=== PATIENT | male | born 1925 | race Caucasian/White ===

== ENCOUNTER 2016-10-18 01:08 | Inpatient (IN) | payer MEDICARE, BC ==
[2016-10-18] VITALS (24 sets, daily range): BP systolic 73–165; BP diastolic 37–140; PULSE 120–153; RESP 13–39; TEMP 100.3–102.8; O2SAT 68–96; Ht 167.6 cm; Wt 86.7 kg
[~2016-10-18] VITALS: Ht 167.6 cm; Wt 86.7 kg
[~2016-10-18 01:08] MED LIST: ACET-2321 PO; CITA20TA9 PO; DIGO125T88 PO; DOCU-175 PO; DONE10TA PO; FURO20TA4 PO; FURO40TA5 PO; LEVO50TA11 PO; LORA0.5T86 PO; METO50TA5 PO; POTA10CA37 PO; QUET25TA PO; WARF4TAB6 PO
[2016-10-18] MEDS ORDERED: ACETAMINOPHEN 500 MG TABLET PO ONE (01:15)
[2016-10-18] MEDS ORDERED: NORMAL SALINE 1,000 ML IV ONE ×2 (01:15→02:15)
[2016-10-18] MEDS ORDERED: CEFTRIAXONE I.V. (ER USE ONLY) 1 G in NORMAL SALINE 100 ML IV ONE (01:15)
--- NOTE | 2016-10-18 01:15 | NUR ---
ASSESSMENT PT NOTED TO HAVE SPO2=88% ON ROOM AIR WITH GOOD PLETH WAVEFORM. OXYGEN APPLIED AT 2L/MIN BY NASAL CANNULA. SPO2 NOTED TO IMPROVE TO 94%. WILL CONTINUE TO MONITOR.
--- OUTSIDE RECORDS SUMMARY | 2016-10-18 01:16 | XMS REPORT | Referral Summary ---
Author Author [facility] Organization [facility] Address Unknown Phone Unavailable Care Team Providers Care Printing Shop Supervisor Name Role Phone Sam Jordan Primary Care Physician [phone] Encounter VC Date(s): 06/24/16 - 06/24/16 [facility] [address] [place] [address] ELAINE Portillo [id number] Discharge Diagnosis: H/O coronary artery bypass surgery Discharge Diagnosis: Cognitive decline Discharge Diagnosis: Atrial fibrillation Discharge Diagnosis: Depression Discharge Diagnosis: Coronary heart disease Discharge Diagnosis: Edema Discharge Disposition: -Home or Self Care Attending Physician: Sukhdev Velasquez MD Admitting Physician: Sukhdev Velasquez MD Referring Physician: Cesar Jordan MD Vital Signs Most recent to 1 oldest [Reference Range]: Peripheral Pulse 80 bpm Rate [60-100 bpm] (06/24/16 10:28 AM) Blood Pressure 106/62 mmHg [90-140/60-90 mmHg] (06/24/16 10:28 AM) Problem List Condition Effective Dates Status Health Status Informant Bladder Active problem(Confirmed)1 Atrial fibrillation Active (disorder)(Confirmed ) Coronary Active arteriosclerosis (disorder)(Confirmed ) Hx of anterior and Active fossa navicularis urethral stricture(Confirmed) Anticoagulant Active long-term use(Confirmed) Dyslipidemia(Confirm Active ed) Prostate 08/2007 Active cancer(Confirmed)2 Obesity(Confirmed) Active patient Venous Active insufficiency(Confir med) Dementia(Confirmed) Active Prostatism(Confirmed Active )3 Pure Active hypercholesterolemia (disorder)(Confirmed ) Tobacco Active patient user(Confirmed) 1Hx of slow urinary [id number], & gross bladder trabeculation 2Trt with radiation 3Hx of elevated PSA, prostatic nodule, & BPH w/prostatism Allergies, Adverse Reactions, Alerts Substance Reaction Severity Status heparin1 Active 1Causes severe aggitation Medications ARIPiprazole 2 mg oral tablet 4 mg 2 tabs, Oral, Daily, # 16 tabs, 2 Refill(s), eRx: [facility] #[id number] , TAKE ONE-HALF TABLET (1MG) BY MOUTH DAILY Start Date: 06/17/16 Status: Ordered citalopram 20 mg oral tablet 20 mg 1 tabs, Oral, Daily, 0 Refill(s) Start Date: 05/07/16 Status: Ordered digoxin 125 mcg (0.125 mg) oral tablet mcg tabs, Oral, Daily, 0 Refill(s) Start Date: 06/24/16 Status: Ordered docusate sodium 0 Refill(s) Start Date: 06/24/16 Status: Ordered donepezil 10 mg oral tablet See Instructions, TAKE 1 TABLET BY MOUTH EVERY DAY, # 30 tabs, 2 Refill(s), eRx : [facility] [employer] [id number], TAKE 1 TABLET BY MOUTH EVERY DAY Start Date: 04/08/16 Status: Ordered furosemide 40 mg oral tablet 40 mg 1 tabs, Oral, Daily, # 30 tabs, 0 Refill(s), Pharmacy: [facility] # [id number], 1 tabs Oral Daily Start Date: 06/17/16 Status: Ordered lovastatin 20 mg oral tablet See Instructions, TAKE 1 TABLET BY MOUTH EVERY DAY, # 90 tabs, eRx: [facility] [employer] [id number], TAKE 1 TABLET BY MOUTH EVERY DAY Start Date: 02/21/16 Status: Ordered MELATONIN 5 MG TABLET See Instructions, TAKE TWO TABLETS (10MG) BY MOUTH EVERY EVENING TO PROMOTE SLEEP, # 62 tabs, eRx: [facility] #[id number], TAKE TWO TABLETS (10MG) BY MOUTH EVERY EVENING TO PROMOTE SLEEP Start Date: 05/20/16 Status: Ordered MELATONIN 5 MG TABLET See Instructions, TAKE TWO TABLETS (10MG) BY MOUTH EVERY EVENING TO PROMOTE SLEEP, # 62 tabs, 2 Refill(s), eRx: [facility] #[id number], TAKE TWO TABLETS ( 10MG) BY MOUTH EVERY EVENING TO PROMOTE SLEEP Start Date: 06/17/16 Status: Ordered Metoprolol Tartrate 50 mg oral tablet See Instructions, TAKE 1 TABLET BY MOUTH TWICE DAILY, # 180 tabs, 1 Refill(s), eRx: [facility] [employer] [id number], TAKE 1 TABLET BY MOUTH TWICE DAILY Start Date: 04/27/16 Status: Ordered multivitamin Daily, 0 Refill(s) Start Date: 03/02/14 Status: Ordered omega-3 polyunsaturated fatty acids 500 mg oral capsule 500 mg 1 caps, Oral, BID, 0 Refill(s) Start Date: 05/07/16 Status: Ordered potassium chloride 10 mEq oral tablet, extended release 10 mEq 1 tabs, Oral, Daily, # 30 tabs, 0 Refill(s), other reason (Rx) Start Date: 06/02/16 Status: Ordered vitamin E 400 intl units oral capsule 1 caps, Oral, Daily, # 100 caps, 0 Refill(s) Start Date: 03/02/14 Status: Ordered warfarin 4 mg oral tablet See Instructions, TAKE 1& 1/2 (6MG) TABLETS BY MOUTH DAILY, # 200 tabs, 2 Refill (s), Pharmacy: [facility], TAKE 1& 1/2 TABLETS BY MOUTH ALTERNATING WITH 2 TABLETS EVERY OTHER DAY Start Date: 02/28/16 Status: Ordered Results Hematology Most recent to 1 oldest [Reference Range]: WBC [4.8-10.8 6.1 10*3/uL 10*3/uL] (06/24/16 11:40 AM) RBC [4.60-6.20] 3.23 *LOW* (06/24/16 11:40 AM) Hgb [14.0-18.0 10.5 gm/dL gm/dL] *LOW* (06/24/16 11:40 AM) Hct [42.0-52.0 %] 31.5 % *LOW* (06/24/16 11:40 AM) MCV [82.0-99.0 fL] 97.5 fL (06/24/16 11:40 AM) MCH [27.0-32.0 pg] 32.5 pg *HI* (06/24/16 11:40 AM) MCHC [32.0-36.0 33.3 gm/dL gm/dL] (06/24/16 11:40 AM) RDW [11.5-14.5 %] 13.7 % (06/24/16 11:40 AM) Platelet [150-400] - 1 (06/24/16 11:40 AM) MPV [8.8-14.8 fL] 11.7 fL (11/23/16 11:40 AM) Immature 0.2 % Granulocytes (06/24/16 11:40 AM) [0.0-1.0 %] Neutrophils [51-75 73 % %] (06/24/16 11:40 AM) Lymphocytes [20-46 16 % %] *LOW* (06/24/16 11:40 AM) Monocytes [4-11 %] 9 % (06/24/16 11:40 AM) Eosinophils [0-4 %] 3 % (06/24/16 11:40 AM) Basophils [0-2 %] 0 % (06/24/16 11:40 AM) Neutro Absolute 4.42 10*3 [1.90-7.00 10*3] (06/24/16 11:40 AM) Lymph Absolute 0.94 10*3 [0.80-3.30 10*3] (06/24/16 11:40 AM) Mccone Absolute 0.54 10*3 [0.30-1.00 10*3] (06/24/16 11:40 AM) Eos Absolute 0.15 10*3 [0.00-0.50 10*3] (06/24/16 11:40 AM) Baso Absolute 0.01 10*3 [0.00-0.20 10*3] (06/24/16 11:40 AM) Differential Scanned Slide (06/24/16 11:40 AM) 1Result Comment: Unable to accurately determine platelet count due to platelet clumping. Suggest recheck by collection in Sodium Citrate tube if clinically indicated. Chemistry Most recent to 1 oldest [Reference Range]: Sodium Lvl [135-144 143 mEq/L mEq/L] (06/24/16 11:40 AM) Potassium Lvl 4.5 mEq/L [3.5-5.2 mEq/L] (06/24/16 11:40 AM) Chloride [99-111 109 mEq/L mEq/L] (06/24/16 11:40 AM) CO2 [23-31 mEq/L] 25 mEq/L (06/24/16 11:40 AM) AGAP [3-20] 9 (06/24/16 11:40 AM) BUN [8-26 mg/dL] 29 mg/dL *HI* (06/24/16 11:40 AM) Glucose Lvl [70-99 84 mg/dL mg/dL] (06/24/16 11:40 AM) Creatinine Lvl 1.26 mg/dL [0.72-1.25 mg/dL] *HI* (06/24/16 11:40 AM) eGFR [>60 mL/min] 54 mL/min 1 *ABN* (06/24/16 11:40 AM) Calcium Lvl 8.7 mg/dL [8.9-10.5 mg/dL] *LOW* (06/24/16 11:40 AM) BNP [0-99 pg/mL] 263 pg/mL *HI* (06/24/16 11:40 AM) T4 Free [0.7-1.5 0.9 ng/dL ng/dL] (06/24/16 11:40 AM) TSH with Reflex Free 10.20 T4 [0.35-4.94] *HI* (06/24/16 11:40 AM) 1Result Comment: Multiply eGFR results by 1.21 for race. Immunizations Vaccine Date Refusal Reason influenza virus vaccine, inactivated 06/20/15 influenza virus vaccine, inactivated 06/05/14 influenza virus vaccine, live 05/12/13 influenza virus vaccine, live 05/05/11 pneumococcal 13-valent conjugate vaccine 03/06/15 pneumococcal 23-polyvalent vaccine 04/14/07 Procedures Procedure Date Related Diagnosis Body Site Cystoscopy/Lazer Vaporization1 08/24/07 Colonoscope 07/15/00 Cardiac Bypass1979 1cystoscopy, transrectal needle prost.bx.& urethral dilatation 21 vessel Social History Social History Type Response Smoking Status Former smoker; Type: Cigarettes; Stopped at age: 52 Assessment and Plan No data available for this section
--- OUTSIDE RECORDS SUMMARY | 2016-10-18 01:16 | XMS REPORT | Continuity of Care Document ---
Author Author [facility] Organization [facility] Address Unknown Phone Unavailable Allergies Active Description Code Type Severity Reaction Onset Reported/Identified Relationship to Patient Clinical Status Yes No Known Medication Allergies NKMA N/A N/A 03/05/2014 Yes heparin NKMA N/A N/A 06/24/2016 Medications Problems Procedures Results Test Result Range Protime (INR) - 12/18/15 09:58 INR 1.9 NA 0.8-1.2 Prothrombin Time Venous seconds Comprehensive Metabolic Panel (CMP) - 12/18/15 09:58 Albumin 4.3 g/dL 3.4-4.8 Alkaline Phosphatase 61 U/L 40-150 ALT (SGPT) 17 U/L 0-55 Anion Gap 6 NA 3-20 AST (SGOT) 22 U/L 5-34 Bilirubin Total 1.0 mg/dL 0.2-1.2 BUN 21 mg/dL 8-26 Calcium 9.2 mg/dL 8.9-10.5 Chloride 106 mEq/L 99-111 CO2 28 mEq/L 23-31 Creatinine 1.16 mg/dL 0.72-1.25 Globulin 2.2 g/dL 1.8-4.0 Glucose 90 mg/dL 70-99 Potassium 5.4 mEq/L 3.5-5.2 Protein 6.5 g/dL 6.2-8.1 Sodium 140 mEq/L 135-144 eGFR - 12/18/15 09:58 eGFR 59 mL/min >60 Basic Metabolic Panel (BMP) - 06/24/16 11:40 Anion Gap 9 NA 3-20 BUN 29 mg/dL 8-26 Calcium 8.7 mg/dL 8.9-10.5 Chloride 109 mEq/L 99-111 CO2 25 mEq/L 23-31 Creatinine 1.26 mg/dL 0.72-1.25 Glucose 84 mg/dL 70-99 Potassium 4.5 mEq/L 3.5-5.2 Sodium 143 mEq/L 135-144 eGFR - 06/24/16 11:40 eGFR 54 mL/min >60 B-Type Natriuretic Peptide - 11/23/16 11:40 B-Type Natriuretic Peptide 263 pg/mL 0- 99 TSH with Reflex Free T4 - 06/24/16 11:40 TSH with Reflex Free T4 10.20 uIU/mL 0.35 -4.94 Free T4 - 06/24/16 11:40 Free T4 0.9 ng/dL 0.7-1.5 Encounters ACCT No. Visit Date/Time Discharge Status Pt. Type Provider Facility Loc./Unit Complaint [id number] 10/02/2013 09:56:00 10/02/2013 23 :59:59 CLS Outpatient
--- NOTE | 2016-10-18 01:24 | ERPDOC ---
Departure Disposition Decision Date: Oct 18, 2016 Disposition Decision Time: 04:25 Disposition: 02 TO [facility] Impression Impression Impression: Primary Impression: Severe sepsis Additional Impression: Facial cellulitis Severity: Severe Condition: Stable Seen By: Physician only Referrals: JASSON GARCIA MD (Family) Problems/Meds/Labs Reviewed?: Yes Medications reviewed and manag: Yes Follow up care ordered?: Yes Mental Status: Alert Critical Care Note Total Time (mins): 65 Critical Care Spent: [id number] care of pt, Reviewing test results, Discuss the case w/staff, Documenting the MR, Discussion w/ family/DPOA During this visit the pt was: Critically Ill, At Risk of Deterioration, At Risk of HPI General Stated Complaint: R EAR INFECTION Time Seen by Provider: 01:13 Source: EMS, [facility] records Exam Limitations: dementia HPI Facial/Scalp Injury Initial Comments Patient was seen in the ER 17 days ago after a fall where he sustained a laceration to the neck just behind the right ear, as well as a small tear/ laceration to the earlobe on that same side. Patient had stitches placed on the neck laceration, but the earlobe laceration was left open and allowed to drain with scribed early dressing changes and wound care. Tonight the [facility] comes [facility] from the [facility], with nursing reports that somehow he was found to have severe facial swelling, redness, and a fever of 102.7 tonight. The film processing shift supervisor nurse that's caring for the patient, was unable to say whether the patient has had any wound care or whether anyone has looked at the wound since the patient was in the ER the last time. EMS personnel were told by the [facility] staff that the patient hadn't "no dressing in place when he came back from the ER, so no dressing was ever placed. Patient obviously has now developed a severe cellulitis in the right face, has tachycardia with normal blood pressure, and a fever greater than 101 by EMS report. Occurred At: home Severity: severe Location: face 1 - Significant facial swelling, induration, tenderness/pain, and erythema. 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 Grade (if student): Graduated HS Advance Directives: Yes DNR Review of Systems Constitutional Constitutional: fever, DENIES: appetite decrease, appetite increase, chills, dizziness, weakness ENMT Ears: DENIES: pain Hearing: DENIES: hearing loss, tinnitus Balance: DENIES: vertigo Mouth/Throat: DENIES: change in swallowing, change in voice, hoarsness, painful swallowing, sore throat Cardiovascular Cardiac: DENIES: chest pain, dyspnea on exertion Rhythm/Rate: DENIES: irregular beat, palpitations, tachycardia Vascular: DENIES: pedal edema Pulmonary Respiratory: DENIES: cough, dyspnea, pleuritic chest pain GI Upper Abdomen: DENIES: dysphagia, heartburn/indigestion, nausea, pain, vomiting Lower Abdomen: DENIES: blood in stool, constipation, diarrhea, pain General: DENIES: burning, dysuria, frequency, pain, urgency Musculoskeletal General: DENIES: cramps, joint pain, joint swelling, pain, weakness Integumentary Skin: DENIES: rash, sores Neurological General: DENIES: headache, numbness, tingling, vertigo, weakness Psychiatric Psychiatric: DENIES: anxiety, depression, nervousness Exam General General Nourishment: well nourished, well developed, appears stated age General Body Habitus: disheveled Height (Feet): 5 Height (Inches): 10.00 Comments Patient does severely limited secondary to dementia Fastrak Face/Scalp Comments Patient has significant area of erythema, tense indurated swelling covering the entire right side of the face extending from the bridge of the nose all the way to the ear and down into the upper portions of the neck. Fluctuance is found, no drainage. Patient continues to have an open nonhealing wound to the right earlobe. Well-healed laceration posterior to the right ear. Positive lymphadenopathy in the right anterior cervical chain Neck (brief) Neck Brief: FOUND: adenopathy, trachea midline, NOT FOUND: JVD, nuchal rigidity , spasm, tenderness, thyromegaly, tracheal deviation Respiratory (brief) Respiratory Brief: FOUND: clear all nielsen, equal bilaterally, symmetrical, NOT FOUND: rales, tenderness, wheezes Cardiovascular (brief) Cardiac Brief: FOUND: regular rhythm, NOT FOUND: pedal edema, regular rate Capillary Refill: <2 sec (tachycardic) Abdomen (brief) Abdominal Brief: FOUND: bowel normo active x4, soft, NOT FOUND: distended, hepatosplenomegaly, tender Lymphatic (brief) Lymphatic Brief: NOT FOUND: adenopathy, lymphedema Musculoskeletal (brief) Musculoskeletal Brief: NOT FOUND: deformity, spasm, tenderness Integumentary (brief) Comments See above Neurologic (brief) Neurological Brief: FOUND: CN w/o gross def to obs, motor-no gross deficits, sensory-no gross deficits Neurologic RN Documented GCS Eye Opening: Verbal: Motor: Total: Psychiatric (brief) Psychiatric Brief: FOUND: alert, NOT FOUND: attentive, normal affect, oriented Progress Results/Orders Orders Procedure Category Date Status Time Iv Lock (Ed Only) EDM 10/18/16 Transmitted 01:13 Cbc W/Auto LAB 10/18/16 Complete Diff-Reflex Manual Cmp - Comprehensive LAB 10/18/16 Complete Metabolic Lactate - Lactic Acid LAB 10/18/16 Complete Procalcitonin LAB 10/18/16 Complete 01:[address] 10/18/16 Logged W/Contrast Ct Neck W/Contrast CT 10/18/16 Logged Blood Culture GREGOR 10/18/16 In Process Lactate - Lactic Acid LAB 10/18/16 Logged 05:43 Acetaminophen PHA 10/18/16 Complete (Tylenol Extra 01:15 Normal Saline (Normal PHA 10/18/16 Complete Saline Iv) 01:15 Ceftriaxone I.V. (Er PHA 10/18/16 Complete Use Only) (Rocephin 01:15 Case Management CONS 10/18/16 Transmitted Consult Acetaminophen PHA 10/18/16 Complete (Ofirmev) 01:45 Iodixanol (Visipaque) PHA 10/18/16 Complete 02:04 Normal Saline (Ns) PHA 10/18/16 Complete 02:04 Saline Flush (Iv PHA 10/18/16 Complete Flush) 02:04 Normal Saline (Normal PHA 10/18/16 Complete Saline Iv) 02:15 Chest 1 View RAD 10/18/16 Taken Vancomycin (Vancocin) PHA 10/18/16 In Process 02:30 INR LAB 10/18/16 Complete Lorazepam (Ativan) PHA 10/18/16 Complete 04:15 Normal Saline (Ns) [facility] 10/18/16 Logged 04:15 Place In Facility: ED ADM 10/18/16 Transmitted 04:18 Measure Vital Signs [facility] 10/18/16 In Process 04:18 Notify Adm Physician [facility] 10/18/16 In Process In Am 04:18 Place In Facility As: ADMIT 10/18/16 Transmitted 04:17 Measure Intake And [facility] 10/18/16 Transmitted Output 04:17 Elevate Hob [facility] 10/18/16 Transmitted Measure Vital Signs [facility] 10/18/16 Transmitted 04:17 Monitor Pulse Oximetry [facility] 10/18/16 Transmitted 04:17 Normal Saline (Normal PHA 10/18/16 Transmitted Saline Iv) 04:17 Morphine Sulfate [facility] 10/18/16 Transmitted (Morphine) 04:30 Regular Diet DIET 10/18/16 Transmitted Breakfast Activity As Tolerated [facility] 10/18/16 Transmitted 04:17 Lab Results Laboratory Tests Test 10/18/16 01:35 White Blood Count 21.8T/MM3 Red Blood Count 3.75M/MM3 Hemoglobin 12.0GM/DL Hematocrit 36.1% Mean Corpuscular Volume 96.3UM3 Mean Corpuscular Hemoglobin 32.0UUG Mean Corpuscular Hemoglobin Concent 33.2GM/DL RDW Standard Deviation 46.8FL Platelet Count 175T/MM3 Mean Platelet Volume 10.9UM3 Immature Granulocyte % (Auto) % Neutrophils (%) (Auto) % Lymphocytes (%) (Auto) % Monocytes (%) (Auto) % Eosinophils (%) (Auto) % Basophils (%) (Auto) % Absolute Immature Granulocyte (auto T/MM3 Absolute Neutrophils (auto) T/MM3 Absolute Lymphocytes (auto) T/MM3 Absolute Monocytes (auto) T/MM3 Absolute Eosinophils (auto) T/MM3 Absolute Basophils (auto) T/MM3 Neutrophils % (Manual) 80.0% Band Neutrophils % 10.0% Lymphocytes % (Manual) 6.0% Monocytes % (Manual) 4.0% Absolute Neutrophils (Manual) 17.4T/MM3 Band Neutrophils # 2.2T/MM3 Lymphocytes # (Manual) 1.3T/MM3 Monocytes # (Manual) 0.9T/MM3 Red Cell Morphology Comment Normal Prothromb Time International Ratio 3.17 Turbidity < 20 Sodium Level 144MEQ/L Potassium Level 4.4MEQ/L Chloride Level 105MEQ/L Carbon Dioxide Level 25MEQ/L Anion Gap 14MEQ/L Blood Urea Nitrogen 45.0MG/DL Creatinine 2.3MG/DL Glomerular Filtration Rate Calc 27 BUN/Creatinine Ratio 20RATIO Glucose Level 151MG/DL Calculated Osmolality 292MOSM/KG Calcium Level 9.5MG/DL Total Bilirubin 1.80MG/DL Icterus Index < 2 Aspartate Amino Transf (AST/SGOT) 28U/L Alanine Aminotransferase (ALT/SGPT) 23U/L Alkaline Phosphatase 134U/L Total Protein 8.2G/DL Albumin 4.4G/DL Globulin 3.8G/DL Albumin/Globulin Ratio 1.2RATIO Plasma Lactate 3.2MMOL/L Procalcitonin 3.46NG/ML Chemistry Specimen Hemolysis < 15 Medications Current ED Medications Acetaminophen 1000 mg 1,000 mg O ONCE PO ; Start 10/18/16 at 01:15; Stop at 01:44; Status DC Sodium Chloride 1,000 ml @ 0 mls/hr Q0M ONCE IV Last administered on 01:36; Start 10/18/16 at 01:15; Stop 10/18/16 at 01:16; Status DC Ceftriaxone Sodium 1 g/Sodium Chloride 100 ml @ 100 mls/hr O ONCE IV Last administered on 10/18/16 01:39; Start 10/18/16 at 01:15; Stop 10/18/16 at 02:14 ; Status DC Acetaminophen/ Sodium Chloride (Ofirmev) 200 ml @ 400 mls/hr O ONCE IV Last administered on 10/18/16 02:46; Start 10/18/16 at 01:45; Stop 10/18/16 at 02:14 ; Status DC Iodixanol 1 bottle 1 bottle STK-MED ONCE IV ; Start 10/18/16 at 02:04; Stop at 02:05; Status DC Sodium Chloride (NS) 100 ml @ As Directed STK-MED ONCE .ROUTE ; Start 10/18/16 at 02:04; Stop 10/18/16 at 02:05; Status DC Sodium Chloride 10 ml 10 ml STK-MED ONCE .ROUTE ; Start 10/18/16 at 02:04; Stop 10/18/16 at 02:05; Status DC Sodium Chloride 1,000 ml @ 0 mls/hr Q0M ONCE IV Last administered on 02:44; Start 10/18/16 at 02:15; Stop 10/18/16 at 02:16; Status DC Vancomycin HCl/ Sodium Chloride (Vancocin/NS) 250 ml @ 250 mls/hr Q12H IV Last administered on 10/18/16 03:01; Start 10/18/16 at 02:30 Lorazepam 0.5 mg 0.5 mg O ONCE IV Last administered on 10/18/16 04:20; Start 10/18/16 at 04:15; Stop 10/18/16 at 04:16; Status DC Sodium Chloride (NS) 500 ml @ 1,000 mls/hr Q30M ONCE IV ; Start 10/18/16 at 04: 15; Stop 10/18/16 at 04:44; Status UNV Progress Progress Patient started 1 L normal saline IV fluid bolus Blood cultures are drawn, patient is then started on Rocephin 1 g IV CBC - elevated white blood cell count with significant left shift CMP - elevated creatinine from 1.2-2.3, Lactate - elevated 3.2 Pro calcitonin - elevated 3.4 Case is discussed with Dr. Lopez while patient is in CT scanner. Vancomycin 1 g IV ordered as well as additional 1 L normal saline IV fluid bolus for severe sepsis with facial cellulitis Disposition significant delayed awaiting results of CT maxillofacial/neck soft tissue - subcutaneous stranding along the bilateral neck related to cellulitis finding is most prominent along the right cheek and periparotid region, no definitive drainable abscess is seen. Prominent right parotid gland inflammation possible parotitis, again no distinct abscesses are seen, no parotid calculus is seen. Some free fluid within the retropharyngeal space, mild mucosal thickening within the bilateral ethmoid sinuses, again no discernible or drainable abscesses are seen. After 25 cc/kg saline bolus and both antibiotic doses in, patient continues to be tachycardic, moderately hypotensive, and will be admitted to the hospitalist service to CCU LIANET OLSON MD Oct 18, 2016 01:24
[2016-10-18 01:41] LABS: HCT - HEMATOCRIT 36.1 % (41-53); MEAN CORPUSCULAR HGB CONC(MCHC 33.2 GM/DL (31-37); MEAN CORPUSCULAR VOLUME 96.3 UM3 (80-100); MEAN PLATELET VOLUME 10.9 UM3 (9.4-12.4); RED BLOOD COUNT 3.75 M/MM3 (4.50-5.90); WBC - WHITE BLOOD COUNT 21.8 T/MM3 (4.5-11.0)
--- OUTSIDE RECORDS SUMMARY | 2016-10-18 01:44 | XMS REPORT | Continuity of Care Document ---
Author Author [facility] Organization [facility] Address Unknown Phone Unavailable Allergies Active Description [...] Status Pt. Type Provider Facility Loc./Unit Complaint [id number] 10/02/2013 09:56:00 10/02/2013 23 :59:59 CLS Outpatient
[2016-10-18] MEDS ORDERED: ACETAMINOPHEN 1,000 MG in RTU-SALINE 100 ML IV ONE (01:45)
[2016-10-18 01:49] LABS: ALBUMIN 4.4 G/DL (3.5-5.0); ALBUMIN/GLOBULIN RATIO 1.2 RATIO (1.1-2.2); ALKALINE PHOSPHATASE 134 U/L (38-126); ALT (SGPT) 23 U/L (21-72); ANION GAP 14 MEQ/L (5-15); AST (SGOT) 28 U/L (17-59); BUN/CREATININE RATIO 20 RATIO (6-26); CALCIUM 9.5 MG/DL (8.4-10.2); CHLORIDE 105 MEQ/L (98-107); CO2 - CARBON DIOXIDE 25 MEQ/L (22-30); CREATININE 2.3 MG/DL (0.8-1.5); GLOMERULAR FILTRATION RATE 27; GLUCOSE 151 MG/DL (75-110); POTASSIUM 4.4 MEQ/L (3.6-5); SODIUM 144 MEQ/L (134-144); TOTAL PROTEIN 8.2 G/DL (6.3-8.2)
[2016-10-18 01:50] LABS: LACTATE - LACTIC ACID 3.2 MMOL/L (0.6-2.2)
[2016-10-18 02:02] LABS: BAND NEUTROPHILS # 2.2 T/MM3; LYMPHOCYTES # (MANUAL) 1.3 T/MM3 (1-4.8); MONOCYTES # (MANUAL) 0.9 T/MM3 (0-0.8); NEUTROPHILS #(MANUAL)-ABSOLUTE 17.4 T/MM3 (1.8-7.7); TOTAL CELLS COUNTED 100 %
[2016-10-18] MEDS ORDERED: IODIXANOL 320 MG/ML 100ml INJECTION IV ONE (02:04)
[2016-10-18] MEDS ORDERED: SALINE FLUSH 10ml SYRINGE ONE (02:04)
[2016-10-18] MEDS ORDERED: NORMAL SALINE 100 ML ONE (02:04)
[2016-10-18] MEDS ORDERED: VANCOMYCIN 1,000 MG in NORMAL SALINE 250 ML IV SCH (02:30)
[2016-10-18 03:22] LABS: INR 3.17 (0.76-1.04); PROTHROMBIN TIME 34.6 SEC (9.31-12.49)
[2016-10-18] MEDS ORDERED: LORAZEPAM 2 MG/ML INJECTION IV ONE (04:15)
[2016-10-18] MEDS ORDERED: NORMAL SALINE 500 ML IV ONE (04:15)
--- NOTE | 2016-10-18 04:15 | NUR ---
REASSESSMENT PT NOTED TO BE RESTLESS, KICKING COVERS OFF OF BED, PULLING AT ECG LEADS, AND REPOSITIONING ON BED. PHYSICIAN NOTIFIED, ORDER OBTAINED.
[2016-10-18] MEDS ORDERED: MORPHINE SULFATE 2 MG SYRINGE IV PRN (04:30)
[2016-10-18] MEDS ORDERED: ONDANSETRON 4mg/2ml INJECTION IV PRN (04:30)
[2016-10-18] MEDS ORDERED: LORAZEPAM 2 MG/ML INJECTION IV PRN (04:30)
--- OUTSIDE RECORDS SUMMARY | 2016-10-18 04:33 | XMS REPORT | Continuity of Care Document ---
Author Author [facility] Organization [facility] Address Unknown Phone Unavailable Allergies Active Description [...] Status Pt. Type Provider Facility Loc./Unit Complaint [id number] 10/02/2013 09:56:00 10/02/2013 23 :59:59 CLS Outpatient
--- NOTE | 2016-10-18 04:37 | HPPDOC ---
JENNY LOPEZ MD 10/18/16 0431: HPI - Adult Date DATE: 10/18/16 TIME: 04:28 General Chief Complaint: face red History of Present Illness 89 y/o male brought to ER by EMS, because of his clinical status and dementia, pt unable to provide me with hx. Below is excerpt from ER documentation DR Castano's note "Patient was seen in the ER 17 days ago after a fall where he sustained a laceration to the neck just behind the right ear, as well as a small tear/ laceration to the earlobe on that same side. Patient had stitches placed on the neck laceration, but the earlobe laceration was left open and allowed to drain with scribed early dressing changes and wound care. Tonight the patient comes back from the retirement, with nursing reports that somehow he was found to have severe facial swelling, redness, and a fever of 102.7 tonight. The night time nanny nurse that's caring for the patient, was unable to say whether the patient has had any wound care or whether anyone has looked at the wound since the patient was in the ER the last time. EMS personnel were told by the retirement staff that the patient hadn't "no dressing in place when he came back from the ER, so no dressing was ever placed. Patient obviously has now developed a severe cellulitis in the right face, has tachycardia with normal blood pressure, and a fever greater than 101 by EMS report." Past Medical History Past Medical History Coronary artery disease History of prostate cancer Atrial fibrillation. Chronic anticoagulation next line depression. Hypercholesterolemia Surgical History Patient's Surgical History: Cardiac bypass (Age 50's) Current Medications Home Meds Reported Medications Acetaminophen (Tylenol) 325 Mg Tablet, 1-2 TAB PO PRN, #60 TAB 2 Refills 10/01/16 Warfarin Sodium (Warfarin Sodium) 4 Mg Tablet, 1 TAB PO DAILY, #90 TAB 1 Refill 10/01/16 Quetiapine Fumarate (Seroquel) 25 Mg Tablet, 25 MG PO TID, TAB 09/21/16 Furosemide (Furosemide) 20 Mg Tablet, 20 MG PO DAILY@NOON 07/03/16 Levothyroxine Sodium (Levothyroxine Sodium) 50 Mcg Tablet, 75 MCG PO ACB 07/03/16 Digoxin (Digoxin) 125 Mcg Tablet, 125 MCG PO DAILY 07/03/16 Potassium Chloride (Potassium Chloride) 10 Meq Capsule.er, 10 MEQ PO DAILY 07/03/16 Furosemide (Furosemide) 40 Mg Tablet, 60 MG PO DAILY 07/03/16 Citalopram Hydrobromide (Citalopram HBr) 20 Mg Tablet, 30 MG PO DAILY 07/03/16 Docusate Sodium (Docusate Sodium) 100 Mg Capsule, 100 MG PO DAILY 04/29/16 Metoprolol Tartrate (Metoprolol Tartrate) 50 Mg Tablet, 50 MG PO BID 04/29/16 Donepezil HCl (Aricept) 10 Mg Tablet, 10 MG PO HS 04/29/16 Allergies: Coded Allergies: Heparin Analogues (Verified Allergy, Unknown, AGGITATION, 10/18/16) Family History Family History: Denies any family history of mental illness. 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 Grade (if student): Graduated HS Advance Directives: Yes DNR Review of Systems Unable to Obtain ROS Due to: clinical condition, dementia Physical Exam General General Nourishment: apparent age Vital Signs Vital Signs Date Time Temp Pulse Resp B/P Pulse Ox O2 Delivery O2 Flow Rate FiO2 10/18/16 04:00 123 25 98/56 97 Nasal Cannula 2.00 10/18/16 03:17 101.8 Height (Feet): 5 Height (Inches): 8.00 Neck Brief: FOUND: adenopathy Respiratory Brief: FOUND: clear all nielsen Cardiovascular (brief) Comments tachy irreg afib on tele at 133 Cardiovascular Murmur: FOUND: no murmur Abdomen (brief) Abdominal Brief: FOUND: BS normo active x4, soft Integumentary (brief) Comments right ear and face swollen, red into neck, left side of face also a bit red, nursing has drawn outline of cellulitis Neurologic (brief) Comments not oriented, poor historian Neurologic RN Documented GCS Eye Opening: (3)To Voice Verbal: (4)Confused Motor: (6)Obeys Commands Total: Laboratory Laboratory Tests Test 10/18/16 01:35 White Blood Count 21.8T/MM3 Red Blood Count 3.75M/MM3 Hemoglobin 12.0GM/DL Hematocrit 36.1% Mean Corpuscular Volume 96.3UM3 Mean Corpuscular Hemoglobin 32.0UUG Mean Corpuscular Hemoglobin Concent 33.2GM/DL RDW Standard Deviation 46.8FL Platelet Count 175T/MM3 Mean Platelet Volume 10.9UM3 Immature Granulocyte % (Auto) % Neutrophils (%) (Auto) % Lymphocytes (%) (Auto) % Monocytes (%) (Auto) % Eosinophils (%) (Auto) % Basophils (%) (Auto) % Absolute Immature Granulocyte (auto T/MM3 Absolute Neutrophils (auto) T/MM3 Absolute Lymphocytes (auto) T/MM3 Absolute Monocytes (auto) T/MM3 Absolute Eosinophils (auto) T/MM3 Absolute Basophils (auto) T/MM3 Neutrophils % (Manual) 80.0% Band Neutrophils % 10.0% Lymphocytes % (Manual) 6.0% Monocytes % (Manual) 4.0% Absolute Neutrophils (Manual) 17.4T/MM3 Band Neutrophils # 2.2T/MM3 Lymphocytes # (Manual) 1.3T/MM3 Monocytes # (Manual) 0.9T/MM3 Red Cell Morphology Comment Normal Prothromb Time International Ratio 3.17 Turbidity < 20 Sodium Level 144MEQ/L Potassium Level 4.4MEQ/L Chloride Level 105MEQ/L Carbon Dioxide Level 25MEQ/L Anion Gap 14MEQ/L Blood Urea Nitrogen 45.0MG/DL Creatinine 2.3MG/DL Glomerular Filtration Rate Calc 27 BUN/Creatinine Ratio 20RATIO Glucose Level 151MG/DL Calculated Osmolality 292MOSM/KG Calcium Level 9.5MG/DL Total Bilirubin 1.80MG/DL Icterus Index < 2 Aspartate Amino Transf (AST/SGOT) 28U/L Alanine Aminotransferase (ALT/SGPT) 23U/L Alkaline Phosphatase 134U/L Total Protein 8.2G/DL Albumin 4.4G/DL Globulin 3.8G/DL Albumin/Globulin Ratio 1.2RATIO Plasma Lactate 3.2MMOL/L Procalcitonin 3.46NG/ML Chemistry Specimen Hemolysis < 15 Sepsis Diagnostic Criteria Sepsis Confirmed/Suspected Infection: Yes SIRS Criteria: Temp<=96.8 or >=100.4, Pulse >= 90 beats/min, WBC >=12,000 or <= 4,000 Severe Sepsis Lactate >=2.0 mg/dL Assessment & Plan Problems: (1) Facial cellulitis Status: Acute Assessment & Plan: IV rocephin and vancomycin administered, continue both. REsult of previous wound/laceration infected. Concerned as to how long infection has been brewing. (2) Severe sepsis Status: Acute Assessment & Plan: see criteria, received 30 ml/kg IV fluids in ER for 3 hour bundle. REpeat lactate at 6 hours. BP still low, continuing IV fluids at 200 ml /hour, need to be cognizant of possible CHF. Hypoxic as well. Guarded prognosis. 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 (8) Chronic anticoagulation Status: Chronic (9) Acute kidney injury DVT Prophylaxis: SCD'S, Coumadin Code Status Do Not Resuscitate Hospital Course Summary Disclaimer The hospital course summary below is not to be considered part of the above Progress Note. CHIKIS VAUGHN MD 10/18/16 0951: Past Medical History Current Medications Home Meds Reported Medications Acetaminophen (Tylenol) 325 Mg Tablet, 1-2 TAB PO PRN, #60 TAB 2 Refills 10/01/16 Warfarin Sodium (Warfarin Sodium) 4 Mg Tablet, 1 TAB PO DAILY, #90 TAB 1 Refill 10/01/16 Quetiapine Fumarate (Seroquel) 25 Mg Tablet, 25 MG PO TID, TAB 09/21/16 Furosemide (Furosemide) 20 Mg Tablet, 20 MG PO DAILY@NOON 07/03/16 Levothyroxine Sodium (Levothyroxine Sodium) 50 Mcg Tablet, 75 MCG PO ACB 07/03/16 Digoxin (Digoxin) 125 Mcg Tablet, 125 MCG PO DAILY 07/03/16 Potassium Chloride (Potassium Chloride) 10 Meq Capsule.er, 10 MEQ PO DAILY 07/03/16 Furosemide (Furosemide) 40 Mg Tablet, 60 MG PO DAILY 07/03/16 Citalopram Hydrobromide (Citalopram HBr) 20 Mg Tablet, 30 MG PO DAILY 07/03/16 Docusate Sodium (Docusate Sodium) 100 Mg Capsule, 100 MG PO DAILY 04/29/16 Metoprolol Tartrate (Metoprolol Tartrate) 50 Mg Tablet, 50 MG PO BID 04/29/16 Donepezil HCl (Aricept) 10 Mg Tablet, 10 MG PO HS 04/29/16 Allergies: Coded Allergies: Heparin Analogues (Verified Allergy, Unknown, AGGITATION, 10/18/16) Assessment & Plan Assessment 10/18/2016-Dr. Vaughn I have reviewed the H&P I Dr. Lopez above. I concur with past medical history, past surgical history, social history, family history. Unable to assess review of systems secondary to patient's dementia and medical status. The patient opens his eyes to voice. He is not able to answer any questions now. On exam, the patient is lethargic but arousable. Temperature was high as 102.5 and is currently 101. O2 sat is 94% on 4 L. Heart rate is 121. Blood pressure is 82/43. HEENT-sclera anicteric, patient has significant erythema anterior to the right ear and down toward the right side of his jaw and neck and going up into the left side of his jaw as well. Tissue is more firm and tender over the right side of his face and jaw. NECK-significant for erythema and tenderness to palpation CV-tachycardic rate with an irregular rhythm CHEST-clear to auscultation anteriorly ABD-soft, nontender, nondistended with hypoactive bowel sounds -no Siegel, unable to place a Siegel post 3 tries including coud, he does have some urine output but is unmeasurable. Bladder scan showed 58 mL's of urine this morning EXT-no edema, SCDs are on NEURO-moves all 4 extremities SKIN-warm and dry and without rashes or erythema other than around the face and neck 3 L fluid bolus since admission. Initial lactate was elevated at 3.2 and repeat is pending. We'll give another 500 cc normal saline bolus at this time. He is stable on [address] maxillofacial and neck done with IV contrast shows subcutaneous stranding along the bilateral neck related to cellulitis. Finding is most prominent along the right cheek and right periparotid region. No definite drainable abscess collection. Prominent right parotid gland with inflammatory changes related to parotitis. No distinct parotid duct calculus is seen. No definite tonsillar or peritonsillar abscess. Some free fluid within the retropharyngeal space. Mild mucosal thickening within the bilateral ethmoid sinuses. Small air-fluid level within the left maxillary sinus. Impression Septic shock with hypotension unresponsive to initial fluid bolus. First lactate was 3.2. Second lactate is pending. Reflex lactate was canceled by the ER. Facial cellulitis possibly related to a skin laceration behind the right ear a few weeks ago Acute hypoxic respiratory failure-requiring 4 L of oxygen Acute kidney injury with creatinine of 2.3 and baseline of 1.3 Urinary retention with inability to place a Siegel catheter even with coud-the patient is incontinent of urine and bladder scan showed only 58 mL's A. fib with RV-digoxin given IV earlier today, increased heart rate is likely secondary to septic shock and continued fever. Chronic anticoagulation with Coumadin-with mild supratherapeutic INR of 3.17- hold coumadin Dementia Depression Hypothyroidism Chronic anticoagulation with Coumadin Plan I did call and talk with the patient's son who his DPOA. He confirmed that his father is DO NOT RESUSCITATE. I discussed with him that his dad is currently in septic shock and discussed possible treatment including PICC line placement, pressors, amiodarone for tachycardia. He stated that his father currently has poor quality of life with dementia and depression. He did not want PICC line placement or pressors. He is leaning towards comfort care. At this time he is okay with continued IV fluids and antibiotics. We will discuss further treatment options when he arrives later this morning. Greater than 75 minutes of critical care time spent seeing and evaluating the patient. JENNY LOPEZ MD Oct 18, 2016 04:31 CHIKIS VAUGHN MD Oct 18, 2016 09:51
--- NOTE | 2016-10-18 04:39 | NUR ---
REPORT PHONE REPORT GIVEN TO MONICA METZGER ON CCU; PT TO BE ADMITTED.
--- NOTE | 2016-10-18 04:45 | NUR ---
ADMISSION PT TRANSPORTED VIA CART, ON PORTABLE MONITOR, OXYGEN, AND WITH IV FLUIDS STILL INFUSING, TO CCU. PT TRANSFERRED FROM ED STRETCHER TO UNIT BED WITHOUT INCIDENT. PT BELONGINGS, INCLUDING INTERMEDIATE PAPERS, CLOTHING AND YELLOW METAL WATCH SENT WITH PT TO UNIT.
--- NOTE | 2016-10-18 04:45 | NUR ---
ADMIT TO CCU 5 PER CART FROM ED. PT RESPONDS WITH 1-2 WORDS VERBALLY WHEN SPOKEN TO AND USUALLY APPROPRIATELY. BRUISES NOTED ON RIGHT SIDE OF BODY. AREA ON FACE, ESPECIALLY RIGHT SIDE INTO NECK IS SWOLLEN AND RED. DENIES PAIN.
[2016-10-18] MEDS: NORMAL SALINE 1,000 ML IV SCH ×2 (05:03→10:21)
[2016-10-18] MEDS ORDERED: DIGOXIN 500mcg/2ml INJECTION IV ONE (05:30)
--- NOTE | 2016-10-18 05:45 | NUR ---
JORDAN CATH ORDER GIVEN BY DR CINTRON TO INSERT JORDAN. UNABLE TO INSERT JORDAN CATH. CATH WOULD GO IN ONLY APPROX 2 INCHES AND NO MORE. PT IS INCONTINENT OF URINE.
[2016-10-18] MEDS ORDERED: PANTOPRAZOLE 40mg INJECTION IV SCH (09:00)
[2016-10-18] MEDS ORDERED: ACETAMINOPHEN 650 MG SUPPOSITORY RECTALLY PRN (09:45)
--- NOTE | 2016-10-18 10:11 | NUR ---
Status Pt has been tachy since arrival to hospital. Pulse remains a-fib in 120s. O2 demands have been increasing. Currently on 5L per NC. Pt's BP has been very hypotensive. 500 cc bolus x2 have been given with little results. Infusion therapy had been notified of PICC insertion, but after physician visited with family they don't want to do anything too aggressing- no medications to increase pressure, no PICC line, or no very invasive tests. Pt's temperature remains greater than 100 degrees currently 102.4. Tylenol suppository given per SEP/. Pt appears very uncomfortable. Frequent repositioning has been provided. Pt very tender on right side. Pt has been incontinent of stool and urine. Again Severiano METZGER tried khan insertion using lidocaine jelly and a coude. Family is on the way from [facility]. Will continue to monitor.
--- NOTE | 2016-10-18 10:41 | NUR ---
Family Family arrived at bedside. Asked for Physician. Dr. Vaughn notified. Son continues to state "dad really wouldn't want anything done. He suffers from severe dementia and doesn't remember minute to minute.". Son also asked about pain medication. This RN explained the balancing act with his low blood pressure. Will continue to monitor.
[2016-10-18] MEDS: HYDROMORPHONE 2mg/ml INJECTION IV PRN ×3 (11:04→15:29)
--- NOTE | 2016-10-18 11:16 | PNPDOC ---
Progress Note Date 10/18/16 I had a conversation here in the hospital with the patient's son Brian Beckford, who his DPOA. His father is in critical condition at this time and not responding to current care. He states that his father's quality of life has been very poor recently and he would like to initiate comfort care. We will stop all medications except for morphine and Ativan for comfort. We will continue oxygen for now. The patient was previously DO NOT RESUSCITATE and this will be continued. CHIKIS CANCHOLA MD Oct 18, 2016 11:15
[2016-10-18] MEDS: LORAZEPAM 2 MG/ML INJECTION IV PRN ×4 (11:26→15:29)
--- NOTE | 2016-10-18 11:30 | NUR ---
Comfort Family decided to follow pt wishes and just provide comfort to pt. IV fluids stopped and blood pressure cuff removed. PRN medications provided for comfort at son's request. Will continue to monitor.
[2016-10-18] MEDS: MORPHINE SULFATE 2 MG SYRINGE IV PRN ×4 (12:27→15:49)
--- NOTE | 2016-10-18 13:26 | DI ---
Indication: ITS.REASON: sepsis with hypoxemia PROCEDURE: CHEST 1 VIEW: Encounter: Initial Comparison: July 03, 2016 Findings: The lungs are stable in appearance without new focal airspace consolidation. There is no pleural effusion or pneumothorax. The heart size, pulmonary vascularity and mediastinal contours are unchanged. Prior sternotomy changes. IMPRESSION: Stable appearance of the chest without acute cardiopulmonary disease. .
[2016-10-18] MEDS ORDERED: EYE PO/SL PRN (13:45)
[2016-10-18] MEDS ORDERED: ATROPINE 1% PO/SL PRN (13:45)
--- NOTE | 2016-10-18 14:38 | NUR ---
Oxygen Pt has requested O2 be removed as to not prolong life. Wishes carried out.
[2016-10-18] MEDS ORDERED: CEFTRIAXONE 1 G in NORMAL SALINE 100 ML IV SCH (15:00)
--- NOTE | 2016-10-18 15:54 | NUR ---
Monitor Family requests monitor be turned off in pt's room. Done at this time. Pt's breathing has become for apneic and labored. HR remains in 170s. Medications given per MAR for comfort.
--- NOTE | 2016-10-18 16:14 | NUR ---
Time of Pt passed very peacefully at 1606. This RN and Severiano RN both listened for apical pulse. 2 sons and [id number] in room. After life care provided. Dr. Vaughn and dye house helper also notified. Dr. Vaughn visited with family before they chose to leave. Son-DPOA took all of pt's personal belongings.
--- NOTE | 2016-10-18 17:18 | NUR ---
Body released Body released to [facility].
[2016-10-18] MEDS ORDERED: VANCOMYCIN IV SCH (21:00)
[2016-10-18] MEDS ORDERED: NORMAL SALINE IV SCH (21:00)
--- NOTE | 2016-10-19 08:33 | DI ---
Indication: ITS.REASON: RT FACIAL CELLULITIS PROCEDURE: CT MAXILLOFACIAL W/CONTRAST: Encounter: Initial Comparison: None Technique: Axial postcontrast CT imaging of the neck and mid face was performed with coronal and sagittal two-dimensional reformats. Automated Exposure Control and Iterative Reconstruction dose reducing techniques were utilized. Contrast: Visipaque 320 75mL Findings: Neck: Lung apices are grossly clear. Thyroid gland is unremarkable. There is skin thickening and induration seen in the anterior neck soft tissues without discrete fluid collection or abscess. There are no pathologically enlarged lymph nodes identified. Great vessels are normal for age. Degenerative changes in the visualized cervical spine. Skull base is unremarkable. Maxillofacial CT: Severe motion artifact makes this portion of the exam nondiagnostic. There is abnormal soft tissue thickening surrounding the right angle of the mandible and retromandibular trigone extending into the area of the right parotid gland. There is no rim-enhancing abscess but there is evidence of a periodontal abscess involving a right mandibular molar. Impression: 1. Anterior neck skin inflammatory change could be due to a cellulitis. 2. Nondiagnostic maxillofacial CT. 3. Abnormal soft tissue swelling in the right parotid region could be due to infection, inflammation or tumor. There is a preliminary report by [employer]. .
--- NOTE | 2016-10-20 08:27 | DSPDOC ---
General Date Date DATE: 10/20/16 TIME: 08:19 Attending Physician Aleksandra Vaughn M.D. Admitting Physician Jeison Lopez MD Consulting Physician None Admitting Diagnosis cellulitis Discharge Diagnosis Septic shock Facial cellulitis possibly related to skin laceration behind the right ear a couple of weeks prior to admission Acute hypoxic respiratory failure Acute kidney injury Urinary retention with urinary incontinence A. fib with RVR Chronic anticoagulation with Coumadin Mildly supratherapeutic INR Dementia Depression Hypothyroidism Procedures none Laboratory Item Value Date Time White Blood Count 21.8 T/MM3 H 10/18/16 0135 Red Blood Count 3.75 M/MM3 L 10/18/16 013 Hemoglobin 12.0 GM/DL L 10/18/16 013 Hematocrit 36.1 % L 10/18/16 013 Mean Corpuscular Volume 96.3 UM3 10/18/16 013 Mean Corpuscular Hemoglobin 32.0 UUG 10/18/16 013 Mean Corpuscular Hemoglobin Concent 33.2 GM/DL 10/18/16 013 RDW Standard Deviation 46.8 FL 10/18/16 013 Platelet Count 175 T/MM3 10/18/16 013 Mean Platelet Volume 10.9 UM3 10/18/16 013 Neutrophils % (Manual) 80.0 % H 10/18/16 013 Band Neutrophils % 10.0 % H 10/18/16 013 Prothromb Time International Ratio 3.17 H 10/18/16 013 Sodium Level 144 MEQ/L 10/18/16 013 Potassium Level 4.4 MEQ/L 10/18/16 013 Chloride Level 105 MEQ/L 10/18/16 013 Carbon Dioxide Level 25 MEQ/L 10/18/16 013 Anion Gap 14 MEQ/L 10/18/16 013 Blood Urea Nitrogen 45.0 MG/DL H 10/18/16 013 Creatinine 2.3 MG/DL H 10/18/16 013 Glomerular Filtration Rate Calc 27 10/18/16 013 BUN/Creatinine Ratio 20 RATIO 10/18/16 013 Glucose Level 151 MG/DL H 10/18/16 013 Calculated Osmolality 292 MOSM/KG H 10/18/16 013 Calcium Level 9.5 MG/DL 10/18/16 013 Total Bilirubin 1.80 MG/DL H 10/18/16 013 Alkaline Phosphatase 134 U/L H 10/18/16134 Total Protein 8.2 G/DL 10/18/16134 Albumin 4.4 G/DL 10/18/16134 Globulin 3.8 G/DL H 10/18/16134 Albumin/Globulin Ratio 1.2 RATIO 10/18/16134 Plasma Lactate 3.2 MMOL/L H 10/18/16134 Plasma Lactate 4.3 MMOL/L *H 10/18/16916 Procalcitonin 3.46 NG/ML *H 10/18/16134 Procalcitonin 12.14 NG/ML *H 10/18/16916 Microbiology Microbiology Date/Time Source Procedure Growth Status 10/18/16 01:36 Peripheral/Iv Start Blood Culture - Preliminary NO GROWTH AFTER 48 HOURS Resulted 10/18/16 01:36 Peripheral/Iv Start Blood Culture - Preliminary NO GROWTH AFTER [address] maxillofacial and neck done with IV contrast shows subcutaneous stranding along the bilateral neck related to cellulitis. Finding is most prominent along the right cheek and right periparotid region. No definite drainable abscess collection. Prominent right parotid gland with inflammatory changes related to parotitis. No distinct parotid duct calculus is seen. No definite tonsillar or peritonsillar abscess. Some free fluid within the retropharyngeal space. Mild mucosal thickening within the bilateral ethmoid sinuses. Small air-fluid level within the left maxillary sinus. Chest x-ray shows no acute cardiopulmonary abnormality History of Present Illness 89 y/o male brought to ER by EMS, because of his clinical status and dementia, pt unable to provide me with hx. Below is excerpt from ER documentation DR Castano's note "Patient was seen in the ER 17 days ago after a fall where he sustained a laceration to the neck just behind the right ear, as well as a small tear/ laceration to the earlobe on that same side. Patient had stitches placed on the neck laceration, but the earlobe laceration was left open and allowed to drain with scribed early dressing changes and wound care. Tonight the patient comes back from the group home, with nursing reports that somehow he was found to have severe facial swelling, redness, and a fever of 102.7 tonight. The public health professor nurse that's caring for the patient, was unable to say whether the patient has had any wound care or whether anyone has looked at the wound since the patient was in the ER the last time. EMS personnel were told by the group home staff that the patient hadn't "no dressing in place when he came back from the ER, so no dressing was ever placed. Patient obviously has now developed a severe cellulitis in the right face, has tachycardia with normal blood pressure, and a fever greater than 101 by EMS report. Hospital Course 10/18/2016-Dr. Vaughn I have reviewed the H&P I Dr. Lopez above. I concur with past medical history, past surgical history, social history, family history. Unable to assess review of systems secondary to patient's dementia and medical status. The patient opens his eyes to voice. He is not able to answer any questions now. On exam, the patient is lethargic but arousable. Temperature was high as 102.5 and is currently 101. O2 sat is 94% on 4 L. Heart rate is 121. Blood pressure is 82/43. HEENT-sclera anicteric, patient has significant erythema anterior to the right ear and down toward the right side of his jaw and neck and going up into the left side of his jaw as well. Tissue is more firm and tender over the right side of his face and jaw. NECK-significant for erythema and tenderness to palpation CV-tachycardic rate with an irregular rhythm CHEST-clear to auscultation anteriorly ABD-soft, nontender, nondistended with hypoactive bowel sounds -no Siegel, unable to place a Siegel post 3 tries including coud, he does have some urine output but is unmeasurable. Bladder scan showed 58 mL's of urine this morning EXT-no edema, SCDs are on NEURO-moves all 4 extremities SKIN-warm and dry and without rashes or erythema other than around the face and neck 3 L fluid bolus since admission. Initial lactate was elevated at 3.2 and repeat is pending. We'll give another 500 cc normal saline bolus at this time. He is stable on [address] maxillofacial and neck done with IV contrast shows subcutaneous stranding along the bilateral neck related to cellulitis. Finding is most prominent along the right cheek and right periparotid region. No definite drainable abscess collection. Prominent right parotid gland with inflammatory changes related to parotitis. No distinct parotid duct calculus is seen. No definite tonsillar or peritonsillar abscess. Some free fluid within the retropharyngeal space. Mild mucosal thickening within the bilateral ethmoid sinuses. Small air-fluid level within the left maxillary sinus. Impression Septic shock with hypotension unresponsive to initial fluid bolus. First lactate was 3.2. Second lactate is pending. Reflex lactate was canceled by the ER. Facial cellulitis possibly related to a skin laceration behind the right ear a few weeks ago Acute hypoxic respiratory failure-requiring 4 L of oxygen Acute kidney injury with creatinine of 2.3 and baseline of 1.3 Urinary retention with inability to place a Siegel catheter even with coud-the patient is incontinent of urine and bladder scan showed only 58 mL's A. fib with RV-digoxin given IV earlier today, increased heart rate is likely secondary to septic shock and continued fever. Chronic anticoagulation with Coumadin-with mild supratherapeutic INR of 3.17- hold coumadin Dementia Depression Hypothyroidism Chronic anticoagulation with Coumadin Plan I did call and talk with the patient's son who his DPOA. He confirmed that his father is DO NOT RESUSCITATE. I discussed with him that his dad is currently in septic shock and discussed possible treatment including PICC line placement, pressors, amiodarone for tachycardia. He stated that his father currently has poor quality of life with dementia and depression. He did not want PICC line placement or pressors. He is leaning towards comfort care. At this time he is okay with continued IV fluids and antibiotics. We will discuss further treatment options when he arrives later this morning. Greater than 75 minutes of critical care time spent seeing and evaluating the patient. The patient's son, Brian Gibbs who his DPOA arrived later in the morning. We discussed his current condition and Brian decided for comfort care and discontinuation of all medications and treatments that were not specifically for comfort. The patient did peacefully at 1606 in the afternoon. Problems: (1) Facial cellulitis Status: Acute Assessment & Plan: IV rocephin and vancomycin administered, continue both. REsult of previous wound/laceration infected. Concerned as to how long infection has been brewing. (2) Severe sepsis Status: Acute Assessment & Plan: see criteria, received 30 ml/kg IV fluids in ER for 3 hour bundle. REpeat lactate at 6 hours. BP still low, continuing IV fluids at 200 ml /hour, need to be cognizant of possible CHF. Hypoxic as well. Guarded prognosis. 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 (8) Chronic anticoagulation Status: Chronic (9) Acute kidney injury Code Status Do Not Resuscitate Home Meds Reported Medications Acetaminophen (Tylenol) 325 Mg Tablet, 1-2 TAB PO PRN, #60 TAB 2 Refills 10/01/16 Warfarin Sodium (Warfarin Sodium) 4 Mg Tablet, 1 TAB PO DAILY, #90 TAB 1 Refill 10/01/16 Quetiapine Fumarate (Seroquel) 25 Mg Tablet, 25 MG PO TID, TAB 09/21/16 Furosemide (Furosemide) 20 Mg Tablet, 20 MG PO DAILY@NOON 07/03/16 Levothyroxine Sodium (Levothyroxine Sodium) 50 Mcg Tablet, 75 MCG PO ACB 07/03/16 Digoxin (Digoxin) 125 Mcg Tablet, 125 MCG PO DAILY 07/03/16 Potassium Chloride (Potassium Chloride) 10 Meq Capsule.er, 10 MEQ PO DAILY 07/03/16 Furosemide (Furosemide) 40 Mg Tablet, 60 MG PO DAILY 07/03/16 Citalopram Hydrobromide (Citalopram HBr) 20 Mg Tablet, 30 MG PO DAILY 07/03/16 Docusate Sodium (Docusate Sodium) 100 Mg Capsule, 100 MG PO DAILY 04/29/16 Metoprolol Tartrate (Metoprolol Tartrate) 50 Mg Tablet, 50 MG PO BID 04/29/16 Donepezil HCl (Aricept) 10 Mg Tablet, 10 MG PO HS 04/29/16 Face to Face Encounter I met with patient on the day of dismissal and discussed follow up appointments , medications, and safety plan. Discharge Disposition The patient's body was released more chore he Copies To 1: JASSON GARCIA MD, STEPHANIE L MD Oct 20, 2016 08:22
== END 2016-10-18 17:16 | disposition expired | DRG 871 ==
LOC: ED 01:08 → EDHOLD 04:17 → CCU 05:14
PROVIDERS: ADMIT Internal Medicine; ATTEND Pediatrics
PROC: 0T9B70Z Drainage of Bladder with Drainage Device, Via Natural or Artificial Opening (ICD-10-PCS; principal; 2016-10-18)
DX: A41.9 Sepsis, unspecified organism (principal); R65.21 Severe sepsis with septic shock; J96.01 Acute respiratory failure with hypoxia; L03.211 Cellulitis of face; N17.9 Acute kidney failure, unspecified; Z66 Do not resuscitate; Z51.5 Encounter for palliative care; F01.50 Vascular dementia, unspecified severity, without behavioral disturbance, psychotic disturbance, mood disturbance, and anxiety; I25.10 Atherosclerotic heart disease of native coronary artery without angina pectoris; F43.25 Adjustment disorder with mixed disturbance of emotions and conduct; I48.2 Chronic atrial fibrillation; R33.9 Retention of urine, unspecified; F32.9 Major depressive disorder, single episode, unspecified; E03.9 Hypothyroidism, unspecified; R32 Unspecified urinary incontinence; S01.311S Laceration without foreign body of right ear, sequela; W19.XXXS Unspecified fall, sequela; Z79.899 Other long term (current) drug therapy; Z79.01 Long term (current) use of anticoagulants
CPT/HCPCS: 36415; 80053; 83605; 84145; 85025; 85610; 87040; 96365; 96366; 96367